=== PATIENT | male | born 1950 | race Caucasian/White ===

== ENCOUNTER 2020-04-19 23:40 | Inpatient (IN) | payer MEDICARE, OTHER ==
[~2020-04-19] VITALS: Ht 170.2 cm; Wt 93.4 kg
[2020-04-19] MEDS ORDERED: IPRATROPIUM BROM 0.5 MG/2.5ML INH SOL ONE (23:58)
[2020-04-19] MEDS ORDERED: ALBUTEROL SULF 2.5 MG/0.5ML(0.5%) NEB SOLN ONE (23:58)
[2020-04-20] MEDS ORDERED: ALBUTEROL SULF 2.5 MG/0.5ML(0.5%) NEB SOLN NEB ONE (00:15)
[2020-04-20] MEDS ORDERED: IPRATROPIUM BROM 0.5 MG/2.5ML INH SOL NEB ONE (00:15)
[2020-04-20] MEDS ORDERED: methylPREDNISolone SOD SUCC 125 MG/2 ML VL IV ONE (00:30)
[2020-04-20] MEDS ORDERED: levoFLOXacin 750MG 150 ML IV ONE (00:30)
[2020-04-20] MEDS ORDERED: SODIUM CHLORIDE 0.9% 1,000 ML IV ONE (00:30)
[2020-04-20 00:49] LABS: Basophils # (auto) 0.1 10 ^3/uL (0-0.2); Basophils % (auto) 0.6 % (0.0-2.0); Eosinophils # (auto) 0.2 10 ^3/uL (0-0.8); Eosinophils % (auto) 1.5 % (0.0-7.0); Hematocrit 46.3 % (41.0-53.0); Hemoglobin 15.4 g/dL (13.5-17.5); Lymphocytes # (auto) 0.9 10 ^3/uL (0.4-5.4); Lymphocytes % (auto) 6.5 % (10.0-50.0); Mean Corpuscular Hemoglobin 29.2 pg (28.0-32.0); Mean Corpuscular Hgb Conc. 33.2 g/dL (32.0-36.0); Monocytes # (auto) 0.9 10 ^3/uL (0-1.3); Neutrophils # (auto) 12.5 10 ^3/uL (1.6-8.6); Neutrophils % (auto) 85.4 % (37.0-80.0); Platelet Count (auto) 316 10^3/uL (140-450); Red Blood Cells 5.27 10^6/uL (4.5-5.90); Red Cell Distribution Width 14.8 % (11.8-14.3); White Blood Cell 14.6 10^3/uL (4.4-10.8)
[2020-04-20 01:32] LABS: INR 1.03 (0.9-1.15); Partial Thromboplastin Time 24.3 sec (23.0-31.2)
[2020-04-20 01:40] LABS: BUN/Creatinine Ratio 9.6; Calcium 8.3 mg/dL (8.5-10.1); Potassium 4.3 mmol/L (3.5-5.1)
[2020-04-20 01:48] LABS: Bilirubin, Total 0.5 mg/dL (0.2-1.0); Total Protein 8.8 g/dL (6.4-8.2)
[2020-04-20 02:17] LABS: CRP High Sensitivity 2.81 mg/dL (< 0.3)
[2020-04-20] MEDS ORDERED: ASPirin 325 MG TAB PO ONE (03:45)
[2020-04-20] MEDS ORDERED: METF-929 PO (05:05)
[2020-04-20] MEDS ORDERED: ASPI-543 PO (05:05)
[2020-04-20] MEDS ORDERED: INSU100I49 SC (05:05)
[2020-04-20] MEDS ORDERED: CARV25TA55 PO (05:05)
[2020-04-20] MEDS ORDERED: OMEP20TA PO (05:05)
[2020-04-20] MEDS ORDERED: LISI-646 PO (05:05)
[2020-04-20] MEDS: ALBUTEROL SULF 2.5 MG/0.5ML(0.5%) NEB SOLN NEB SCH ×3 (06:00→16:43)
[2020-04-20] MEDS ORDERED: methylPREDNISolone SOD SUCC 40 MG/ML VL IV SCH (06:00)
[2020-04-20] MEDS ORDERED: MORPHINE SULFATE 4 MG/ML SYR/VIAL IV PRN (06:00)
[2020-04-20] MEDS: IPRATROPIUM BROM 0.5 MG/2.5ML INH SOL NEB SCH ×3 (06:00→16:43)
[2020-04-20] MEDS ORDERED: MORPHINE SULF INJ 2 MG/ML SYRINGE 1ML IV PRN (06:00)
[2020-04-20] MEDS ORDERED: ONDANSETRON HCL 4 MG/2 ML VIAL IV PRN (06:00)
[2020-04-20] MEDS ORDERED: DOCUSATE SOD 100 MG CAP PO PRN (06:00)
[2020-04-20] MEDS ORDERED: NITROGLYCERIN 0.4 MG SL TAB SL PRN (06:00)
[2020-04-20 06:45] LABS: Basophils # (auto) 0 10 ^3/uL (0-0.2); Basophils % (auto) 0.6 % (0.0-2.0); Eosinophils # (auto) 0 10 ^3/uL (0-0.8); Hematocrit 39.4 % (41.0-53.0); Lymphocytes # (auto) 0.4 10 ^3/uL (0.4-5.4); Lymphocytes % (auto) 4.4 % (10.0-50.0); Mean Corpuscular Hemoglobin 28.9 pg (28.0-32.0); Mean Corpuscular Volume 87.7 fL (80.0-100.0); Monocytes # (auto) 0.2 10 ^3/uL (0-1.3); Monocytes % (auto) 1.9 % (0.0-12.0); Neutrophils # (auto) 7.9 10 ^3/uL (1.6-8.6); Neutrophils % (auto) 93.1 % (37.0-80.0); Nucleated Red Blood Cells % 0.1 %; Platelet Count (auto) 259 10^3/uL (140-450); Red Cell Distribution Width 14.9 % (11.8-14.3); White Blood Cell 8.5 10^3/uL (4.4-10.8)
[2020-04-20] MEDS ORDERED: FUROSEMIDE 40 MG/4 ML VIAL IV ONE (06:45)
[2020-04-20 07:07] LABS: Potassium 4.7 mmol/L (3.5-5.1)
[2020-04-20 07:29] LABS: Albumin 3.1 g/dL (3.4-5.0); BUN/Creatinine Ratio 13.1; Bilirubin, Total 0.5 mg/dL (0.2-1.0); Calcium 7.9 mg/dL (8.5-10.1); Total Protein 7.1 g/dL (6.4-8.2)
[2020-04-20 08:16] LABS: Urine Bacteria NONE SEEN /hpf (None Seen); Urine Blood TRACE /uL (Negative); Urine Specific Gravity 1.023 (1.001-1.035); Urine WBC 5 /hpf (0 - 3)
[2020-04-20] MEDS: cefTRIAXone 1GM/50ML D5W 50 ML IV SCH (09:29)
[2020-04-20] MEDS: ASPirin 81 mg TAB PO SCH (09:30)
[2020-04-20] MEDS ORDERED: PANTOPRAZOLE 40 MG/10 ML VIAL INJ IV SCH (10:00)
[2020-04-20] MEDS: NITROGLYCERIN 0.2MG/HR TOPICAL PATCH TD SCH (10:00)
[2020-04-20] MEDS ORDERED: ENALAPRIL MALEATE 2.5 MG TAB PO SCH (10:00)
[2020-04-20] MEDS: FUROSEMIDE 40 MG/4 ML VIAL IV SCH (11:17)
[2020-04-20] MEDS: HEPARIN SODIUM (PORCINE) 5000 UNITS/ML 1ML VIAL SC SCH ×2 (11:18→22:55)
[2020-04-20] MEDS ORDERED: DEXTROSE (50%) 50ML SYRG IV PRN ×2 (16:00→22:15)
[2020-04-20] MEDS: ACCU-CHEK COMFORT CURVE STRIP VI SCH ×3 (18:00→22:55)
[2020-04-20] MEDS ORDERED: INSUINJ18 SC ×2 (18:02)
[2020-04-20] MEDS ORDERED: ATOR10TA PO (18:02)
[2020-04-20] MEDS ORDERED: LISI40TA11 PO (18:02)
[2020-04-20] MEDS ORDERED: INSLANTI SC ×2 (18:02)
[2020-04-20] MEDS: InsuLIN REG 1unit/0.01ml Soln (100units/ml) SC SCH ×3 (18:25→22:55)
[2020-04-20 18:30] VITALS: BP 142/86
--- NOTE | 2020-04-20 19:40 | NUR ---
Opening Shift Note Assumed care of patient, awake and alert x4. Patient denies pain or shortness of breath at this time. Patient is on 4L/min Oxymizer. No sign/symptoms of distress noted or verbalized at this time. Instructed on plan of care and encouraged patient to call for assistance as needed, patient verbalized understanding. Bed is locked in lowest position, side rails x2 are up, and call light is within reach.
--- NOTE | 2020-04-20 21:30 | NUR ---
Paged Hospitalist RE: High Blood Sugar Hospitalist paged regarding critical blood sugar. Awaiting call back.
[2020-04-20 22:00] VITALS: BP 157/73
[2020-04-20] MEDS ORDERED: INSULIN LANTUS (GLARGINE) 1 /0.01ml (100units/ml) SC SCH (22:00)
--- NOTE | 2020-04-20 22:01 | NUR ---
Re-Paged Hospitalist RE: Critical Blood Sugar Hospitalist re-paged regarding critical blood sugar. Awaiting call back.
--- NOTE | 2020-04-20 22:04 | NUR ---
Hospitalist Returned Call RE: Critical Blood Sugar Hospitalist returned call regarding critical blood sugar 421. FOOD SAFETY AUDITOR Colleen made aware that initial blood sugar was 416 and after administrating Lantus 15 units and 10 units of regular insulin per mild sliding scale patient's most recent blood sugar is 421. Orders received, read back, and verified. Will carry out orders as received (see EMR).
[2020-04-20] MEDS ORDERED: ALBUTEROL SULF HFA 90MCG INH 200DOSE IN PRN (22:15)
[2020-04-20] MEDS: ACETAMINOPHEN 325 MG TAB PO PRN (23:10)
[2020-04-21] MEDS: InsuLIN REG 1unit/0.01ml Soln (100units/ml) SC SCH ×5 (04:06→20:40)
[2020-04-21] MEDS: ACCU-CHEK COMFORT CURVE STRIP VI SCH ×6 (04:06→23:51)
[2020-04-21 05:00] VITALS: BP 145/78
[2020-04-21] MEDS ORDERED: ALBUTEROL SULF HFA 90MCG INH 200DOSE IN PRN (05:45)
[2020-04-21 05:52] LABS: Basophils # (auto) 0 10 ^3/uL (0-0.2); Eosinophils # (auto) 0 10 ^3/uL (0-0.8); Hematocrit 37.3 % (41.0-53.0); Hemoglobin 12.3 g/dL (13.5-17.5); Lymphocytes # (auto) 0.7 10 ^3/uL (0.4-5.4); Lymphocytes % (auto) 8.5 % (10.0-50.0); Mean Corpuscular Hemoglobin 28.8 pg (28.0-32.0); Mean Corpuscular Hgb Conc. 32.8 g/dL (32.0-36.0); Mean Corpuscular Volume 87.6 fL (80.0-100.0); Monocytes # (auto) 1.1 10 ^3/uL (0-1.3); Monocytes % (auto) 14.8 % (0.0-12.0); Neutrophils # (auto) 5.9 10 ^3/uL (1.6-8.6); Neutrophils % (auto) 76.7 % (37.0-80.0); Platelet Count (auto) 256 10^3/uL (140-450); Red Blood Cells 4.26 10^6/uL (4.5-5.90); Red Cell Distribution Width 14.6 % (11.8-14.3); White Blood Cell 7.7 10^3/uL (4.4-10.8)
[2020-04-21] MEDS ORDERED: ALBUTEROL SULF HFA 90MCG INH 200DOSE IN SCH (06:00)
[2020-04-21 06:16] LABS: Albumin 3.2 g/dL (3.4-5.0); Calcium 8.1 mg/dL (8.5-10.1); Potassium 4.3 mmol/L (3.5-5.1)
[2020-04-21 06:22] LABS: BUN/Creatinine Ratio 19.6; Bilirubin, Total 0.3 mg/dL (0.2-1.0)
[2020-04-21] MEDS ORDERED: GLIP5TAB12 PO (07:39)
[2020-04-21] MEDS ORDERED: INSLANTI SC (07:39)
[2020-04-21] MEDS: NITROGLYCERIN 0.2MG/HR TOPICAL PATCH TD SCH (10:00)
[2020-04-21] MEDS ORDERED: ENOXAPARIN SOD 100 MG/1 ML SYRINGE SC ONE (10:45)
[2020-04-21] MEDS ORDERED: DexAMETHasone SOD PHOS 10MG/1ML VIAL INJ IV ONE (10:45)
[2020-04-21] MEDS ORDERED: AZITHROMYCIN 250 MG TAB PO ONE (10:45)
[2020-04-21] MEDS ORDERED: diphenhdrAMINE HCL 50 MG/1 ML VL IV PRN (10:45)
[2020-04-21] MEDS ORDERED: REMDESIVIR PER PHARMACY IV SCH (10:45)
[2020-04-21] MEDS ORDERED: FAMOTIDINE (10MG/ML) 2ML VL IV ONE (11:00)
[2020-04-21] MEDS: ASPirin 81 mg TAB PO SCH (11:10)
[2020-04-21] MEDS: cefTRIAXone 1GM/50ML D5W 50 ML IV SCH (11:10)
[2020-04-21 13:00] VITALS: BP 127/77
[2020-04-21] MEDS: FUROSEMIDE 40 MG/4 ML VIAL IV SCH (13:33)
[2020-04-21 17:00] VITALS: BP 131/68
[2020-04-21] MEDS ORDERED: REMDESIVIR 200 MG in NS 210ml LOADING DOSE ADULT IV ONE (17:00)
[2020-04-21 22:00] VITALS: BP 133/93
[2020-04-21] MEDS: FAMOTIDINE (10MG/ML) 2ML VL IV SCH ×2 (22:00→23:50)
--- NOTE | 2020-04-21 22:16 | NUR ---
1 Unit of Convalescent plasma started. Will continue to monitor patient.
[2020-04-21 22:24] LABS: Creatinine, Urine 24 mg/dL (30.0-125.0); Sodium Urine 121 mmol/L (40-220)
[2020-04-21 23:16] VITALS: BP 144/88
[2020-04-21] MEDS: ACETAMINOPHEN 325 MG TAB PO PRN (23:59)
[2020-04-22 00:28] VITALS: BP 145/91
--- NOTE | 2020-04-22 00:30 | NUR ---
Convalescent plasma completed. Patient tolerated well. Will continue to monitor.
[2020-04-22] MEDS: InsuLIN REG 1unit/0.01ml Soln (100units/ml) SC SCH ×6 (02:30→20:22)
[2020-04-22] MEDS: INSULIN LANTUS (GLARGINE) 1 /0.01ml (100units/ml) SC SCH ×3 (02:31→21:54)
[2020-04-22 05:00] VITALS: BP 162/93
[2020-04-22] MEDS: HYDROcodone-ACET 5/325MG TAB PO PRN ×3 (05:11→18:30)
[2020-04-22] MEDS: ACCU-CHEK COMFORT CURVE STRIP VI SCH ×5 (05:12→20:18)
[2020-04-22 06:55] LABS: Basophils # (auto) 0 10 ^3/uL (0-0.2); Basophils % (auto) 0.4 % (0.0-2.0); Eosinophils # (auto) 0 10 ^3/uL (0-0.8); Eosinophils % (auto) 0.2 % (0.0-7.0); Hematocrit 43.2 % (41.0-53.0); Hemoglobin 14.1 g/dL (13.5-17.5); Lymphocytes # (auto) 0.4 10 ^3/uL (0.4-5.4); Lymphocytes % (auto) 5.3 % (10.0-50.0); Mean Corpuscular Hemoglobin 28.6 pg (28.0-32.0); Mean Corpuscular Hgb Conc. 32.6 g/dL (32.0-36.0); Mean Corpuscular Volume 87.6 fL (80.0-100.0); Monocytes # (auto) 0.6 10 ^3/uL (0-1.3); Monocytes % (auto) 7.5 % (0.0-12.0); Neutrophils # (auto) 7.2 10 ^3/uL (1.6-8.6); Neutrophils % (auto) 86.6 % (37.0-80.0); Nucleated Red Blood Cells % 0.1 %; Platelet Count (auto) 251 10^3/uL (140-450); Red Blood Cells 4.93 10^6/uL (4.5-5.90); Red Cell Distribution Width 14.9 % (11.8-14.3); White Blood Cell 8.4 10^3/uL (4.4-10.8)
[2020-04-22 07:19] LABS: Potassium 3.7 mmol/L (3.5-5.1)
[2020-04-22 07:46] LABS: Albumin 3.6 g/dL (3.4-5.0); BUN/Creatinine Ratio 19.5; Bilirubin, Total 0.4 mg/dL (0.2-1.0); CRP High Sensitivity 1.5 mg/dL (< 0.3); Calcium 8.5 mg/dL (8.5-10.1); Magnesium 1.9 mg/dL (1.6-2.6); Total Protein 7.9 g/dL (6.4-8.2)
[2020-04-22 08:00] VITALS: BP 174/99
[2020-04-22] MEDS: AZITHROMYCIN 250 MG TAB PO SCH (08:25)
[2020-04-22] MEDS: SACUBITRIL-VALSARTAN 24mg/26mg TAB PO SCH (08:25)
[2020-04-22] MEDS: CLOPIDOGREL BISULFATE 75 MG TAB PO SCH (08:25)
[2020-04-22] MEDS: ASPirin 81 mg TAB PO SCH (08:26)
[2020-04-22] MEDS: NITROGLYCERIN 0.2MG/HR TOPICAL PATCH TD SCH (08:26)
[2020-04-22] MEDS: FAMOTIDINE (10MG/ML) 2ML VL IV SCH ×3 (08:26→21:40)
[2020-04-22] MEDS: FUROSEMIDE 40 MG/4 ML VIAL IV SCH (08:27)
[2020-04-22] MEDS: DexAMETHasone SOD PHOS 10MG/1ML VIAL INJ IV SCH (08:27)
--- NOTE | 2020-04-22 08:30 | NUR ---
REFUSED INSULIN PATIENT BLODD SUGAR 170; PATIENT REFUSED INSULIN PATIENT STATED " IM NOT GOING TO EAT BREAKFAST I WILL WAIT UNTIL LUNCH TO RECHECK MY BLOOD SUGAR" PATIENT EDUCATION PROVIDED. PATIENT HAS IMPLANTED BLOOD SUGAR MONITOR AND WILL ALSO MONITOR BLOOD SUGAR.
[2020-04-22] MEDS: cefTRIAXone 1GM/50ML D5W 50 ML IV SCH (08:44)
[2020-04-22] MEDS: ACETAMINOPHEN 325 MG TAB PO PRN (08:44)
[2020-04-22] MEDS ORDERED: ENOXAPARIN SOD 100 MG/1 ML SYRINGE SC SCH (10:00)
--- NOTE | 2020-04-22 10:00 | NUR ---
REASSESS BLOOD PRESSURE BP155/96 PULSE 94 DENIED PAIN, NO DISTRESS OR SOB; OXYGEN DELIVERED VIA OXYMIZER SET @ 4 LITERS O2 SATURATION 96%. WILL CONTIUE TO MONITOR.
--- NOTE | 2020-04-22 11:20 | NUR ---
Nutrition Assessment Notes please see attached link for complete assessment Est Energy needs ABW 81 [id number] kcals (23-25 kcal/kgABW), Est Protein needs: 64-81gms/day (0.8-1.0 gm/kgABW r/t elev RFT). Will continue to monitor and reassess prn. Addendum: 04/22/20 at [address] Amended: Links added.
--- NOTE | 2020-04-22 11:30 | NUR ---
TITRATED OXYGEN CHANGED FROM OXYMIZER 4.5L TO NASAL CANNULA AT 4 LITERS, SATURATION @ 94%. WILL CONTINUE TO MONITOR.
[2020-04-22 11:57] VITALS: BP 155/87
--- NOTE | 2020-04-22 12:00 | NUR ---
REASSESS O2 @ 96% ON 4 LITERS NASAL CANNULA; DENIED PAIN, NO SOB OR DISTRESS.
--- NOTE | 2020-04-22 16:45 | NUR ---
PAGED DR MATHUR FOR LOVENOX CLARIFICATION PER PHARMACY REQUEST.
[2020-04-22 17:01] VITALS: BP 112/80
[2020-04-22] MEDS: REMDESIVIR 100 MG in SODIUM CHL 0.9% 250 ML IV SCH (18:20)
--- NOTE | 2020-04-22 18:30 | NUR ---
PRE REMDESIVIR VITAL BP 112/80 HR 80 RR 22 TEMP 97.9 97% 3L NC WITH HUMIDIFIER.
--- NOTE | 2020-04-22 18:45 | NUR ---
15 MINUTE REMDESIVIR VITALS BP 144/92 HR 83 RR 16 T 98.7 O2 94 % 4L
--- NOTE | 2020-04-22 19:07 | NUR ---
ENDORSED CARE TO NIGHT GREY STOCK RECORDER RN WILL NEED TO ASSESS POST REMDESIVIR VITALS.
--- NOTE | 2020-04-22 19:20 | NUR ---
Opening note Assumed care of patient, patient is alert and orientated x4. No sob or distress noted Patient is still on Remdesivir. Will take last vitals. Bed is locked in lowest position, side rails up x2. POC reviewed. All questions answered at this time. Call light within reach, will continue to monitor q1hr and PRN.
--- NOTE | 2020-04-22 19:45 | NUR ---
Remdesivir complete Remdesivir complete. Flushed line with 40 ml. Vitals are as follows 137/83 HR 77, RR 18, 93% 98.0 temp. No pain. Patient tolerated well. Will continue to monitor q1hr and PRN.
[2020-04-22] MEDS: ENOXAPARIN SOD 100 MG/1 ML SYRINGE SC SCH (21:40)
[2020-04-22 22:00] VITALS: BP 142/72
[2020-04-23] MEDS: InsuLIN REG 1unit/0.01ml Soln (100units/ml) SC SCH ×7 (00:12→23:35)
[2020-04-23] MEDS: ACCU-CHEK COMFORT CURVE STRIP VI SCH ×7 (00:14→23:35)
[2020-04-23 05:00] VITALS: BP 131/85
--- NOTE | 2020-04-23 06:28 | NUR ---
Respiratory note: PT IS AWAKE, AND ALERT. NO RESPIRATORY DISTRESS NOTED. SPO2 95% ON 2.5L NC, HR 82, RR 18 BS CLEAR/DIMINISHED. PRN MDI TX NOT INDICATED AT THIS TIME. PT INFORMED TO PUSH CALL BUTTON IF INCREASED WOB, SOB, OR WHEEZING OCCURS. WILL CONTINUE TO MONITOR PT. CHARTING COMPLETE FROM OUTSIDE OF PT ROOM PER COVID-19 PRECAUTIONS/PROTOCOL.
[2020-04-23] MEDS: INSULIN LANTUS (GLARGINE) 1 /0.01ml (100units/ml) SC SCH ×2 (06:30→22:00)
[2020-04-23] MEDS: ACETAMINOPHEN 325 MG TAB PO PRN ×2 (06:33→17:27)
[2020-04-23 07:00] LABS: Potassium 3.8 mmol/L (3.5-5.1)
[2020-04-23 07:13] LABS: BUN/Creatinine Ratio 21.7; Calcium 8.2 mg/dL (8.5-10.1)
--- NOTE | 2020-04-23 07:17 | NUR ---
Closing note Endorsed care to day shift RN, no sob or distress noted.
[2020-04-23 09:13] VITALS: BP 153/84
[2020-04-23] MEDS: cefTRIAXone 1GM/50ML D5W 50 ML IV SCH (10:30)
[2020-04-23] MEDS: DexAMETHasone SOD PHOS 10MG/1ML VIAL INJ IV SCH (10:30)
--- NOTE | 2020-04-23 10:30 | NUR ---
Midline Placement: Patient educated on need for midline placement. All risks and benefits explained and all questions and concerns addresses prior to procedure. 18g/10 cm midline inserted via RIGHT BASILIC vein using Ultrasound. Sterile technique utilized. Blood return obtained from THE SINGLE lumen and flushed easily with NS using proper technique. Midline secured with saline lock; biodisc and occlusive dressing applied. Primary RN MARY notified. Midline lot # [id number]
[2020-04-23] MEDS: FUROSEMIDE 40 MG/4 ML VIAL IV SCH (10:31)
[2020-04-23] MEDS: ASPirin 81 mg TAB PO SCH (10:31)
[2020-04-23] MEDS: FAMOTIDINE (10MG/ML) 2ML VL IV SCH ×2 (10:31→22:00)
[2020-04-23] MEDS: CLOPIDOGREL BISULFATE 75 MG TAB PO SCH (10:32)
[2020-04-23] MEDS: SACUBITRIL-VALSARTAN 24mg/26mg TAB PO SCH (10:32)
[2020-04-23] MEDS: ENOXAPARIN SOD 100 MG/1 ML SYRINGE SC SCH ×2 (10:34→22:00)
[2020-04-23] MEDS: NITROGLYCERIN 0.2MG/HR TOPICAL PATCH TD SCH (10:35)
[2020-04-23] MEDS: AZITHROMYCIN 250 MG TAB PO SCH (10:36)
[2020-04-23] MEDS: HYDROcodone-ACET 5/325MG TAB PO PRN (12:30)
[2020-04-23 13:00] VITALS: BP 153/70
--- NOTE | 2020-04-23 14:30 | NUR ---
O2 TITRATED TO .5L SATURATION 96%, TOELRATED WELL.
[2020-04-23 17:22] VITALS: BP 139/88
[2020-04-23] MEDS: REMDESIVIR 100 MG in SODIUM CHL 0.9% 250 ML IV SCH (18:39)
--- NOTE | 2020-04-23 19:40 | NUR ---
Opening Shift Note Assumed care of patient, awake and alert x4. Patient denies pain or shortness of breath at this time. No sign/symptoms of distress noted or verbalized at this time. Instructed on plan of care and encouraged patient to call for assistance as needed, patient verbalized understanding. Bed is locked in lowest position, side rails x 2 are up, and call light is within reach.
--- NOTE | 2020-04-23 19:40 | NUR ---
ENDORSED CARE TO NIGHT RN PATIENT WILL NEED LAST SET OF VITALS AFTER REMDESIVIR IS GIVEN.
[2020-04-23 20:00] VITALS: BP 139/78
--- NOTE | 2020-04-23 20:00 | NUR ---
Remdesivir Vital Signs Remdesivir completed at this time. No sign/symptoms of distress noted or verbalized at this time. No adverse reactions reported at this time or during infusion. Post infusion vital signs are the following: BP: 139/78, HR: 77, RR: 18, SPO2: 92% on room air, TEMP: 98.1.
--- NOTE | 2020-04-23 22:00 | NUR ---
Hospitalist Paged RE: Critical Blood Sugar Hospitalist paged regarding critical blood sugar 474. Awaiting call back.
--- NOTE | 2020-04-23 22:34 | NUR ---
Spoke with Hospitalist RE: Critical Blood Sugar Notified KATI Montoya that patient's blood sugar was 474 and this RN has already medicated patient with 15 units of regular insulin per moderate sliding scale. KATI Montoya aware that patient is on every 4 hours accucheck on a moderate scale and has a scheduled 22:00 Lantus 25 units. No new orders received at this time.
--- NOTE | 2020-04-23 23:00 | NUR ---
Blood Sugar Reassessment Blood sugar at this time is 341.
[2020-04-24] VITALS (7 sets, daily range): BP systolic 133–160; BP diastolic 73–102
[2020-04-24] MEDS ORDERED: TEMAZEPAM 15 MG CAP PO ONE (00:45)
[2020-04-24] MEDS: InsuLIN REG 1unit/0.01ml Soln (100units/ml) SC SCH ×6 (04:00→23:20)
[2020-04-24] MEDS: ACCU-CHEK COMFORT CURVE STRIP VI SCH ×6 (04:00→23:20)
[2020-04-24 06:41] LABS: Hematocrit 46.3 % (41.0-53.0); Hemoglobin 15.8 g/dL (13.5-17.5); Mean Corpuscular Hemoglobin 29.4 pg (28.0-32.0); Mean Corpuscular Hgb Conc. 34.1 g/dL (32.0-36.0); Mean Corpuscular Volume 86.3 fL (80.0-100.0); Platelet Count (auto) 263 10^3/uL (140-450); Red Blood Cells 5.36 10^6/uL (4.5-5.90); Red Cell Distribution Width 14.9 % (11.8-14.3); White Blood Cell 5.8 10^3/uL (4.4-10.8)
[2020-04-24] MEDS: INSULIN LANTUS (GLARGINE) 1 /0.01ml (100units/ml) SC SCH ×2 (06:54→22:00)
[2020-04-24 07:06] LABS: Basophils % (manual) 0 (0.0-2.0); Blast Cells 0; Eosinophils % (manual) 0 (0-7); Metamyelocytes % 0; Myelocytes % 0; Promyelocytes % 0; Reactive Lymphocytes 0
[2020-04-24 07:07] LABS: BUN/Creatinine Ratio 23.4; Calcium 8.4 mg/dL (8.5-10.1); Potassium 3.6 mmol/L (3.5-5.1)
[2020-04-24 07:35] LABS: Band Neutrophils % (manual) 1; Lymphocytes % (manual) 14 (10.0-50.0); Monocytes % (manual) 24 (0-12)
[2020-04-24] MEDS: cefTRIAXone 1GM/50ML D5W 50 ML IV SCH (09:37)
[2020-04-24] MEDS: FUROSEMIDE 40 MG/4 ML VIAL IV SCH (09:40)
[2020-04-24] MEDS: FAMOTIDINE (10MG/ML) 2ML VL IV SCH ×2 (09:40→21:30)
[2020-04-24] MEDS: DexAMETHasone SOD PHOS 10MG/1ML VIAL INJ IV SCH (09:40)
[2020-04-24] MEDS: CLOPIDOGREL BISULFATE 75 MG TAB PO SCH (09:41)
[2020-04-24] MEDS: ENOXAPARIN SOD 100 MG/1 ML SYRINGE SC SCH ×2 (09:41→21:30)
[2020-04-24] MEDS: AZITHROMYCIN 250 MG TAB PO SCH (09:41)
[2020-04-24] MEDS: NITROGLYCERIN 0.2MG/HR TOPICAL PATCH TD SCH (09:41)
[2020-04-24] MEDS: ASPirin 81 mg TAB PO SCH (09:42)
[2020-04-24] MEDS: SACUBITRIL-VALSARTAN 24mg/26mg TAB PO SCH ×2 (09:43→21:31)
[2020-04-24] MEDS: ACETAMINOPHEN 325 MG TAB PO PRN ×2 (10:45→20:23)
--- NOTE | 2020-04-24 12:55 | NUR ---
at bedside MD Mccracken at bedside. No new orders received. Will inform primary RN Fede.
--- NOTE | 2020-04-24 17:10 | NUR ---
STARTING VITALS BP 131/101 PULSE 78 O2 SATURATION 94% ON ROOM AIR NO DISTRESS OR SOB
--- NOTE | 2020-04-24 17:25 | NUR ---
15 MINUTE VITALS BP 135/78 P 82 O2 SATURATION ON ROOM AIR 93%
--- NOTE | 2020-04-24 17:30 | NUR ---
PAGED DR MATHUR TO RESUME PATIENTS HOME MEDICATIONS AND START A SLEEP AIDE THIS NIGHT.
--- NOTE | 2020-04-24 18:10 | NUR ---
HOSPITALIST PAGED PATIENT LAST BP AFTER REMDESIVIR HIGH 179/80 PULSE 92 O2 SATURATION 93% ROOM AIRE.
--- NOTE | 2020-04-24 18:47 | NUR ---
REPAGED HOSPITALIST FOR NEW ORDERS FOR HIGH BP AND SLEEP AIDE .
--- NOTE | 2020-04-24 19:09 | NUR ---
endorsed care to night rn. this rn received new orders for elevated bp and will give bp medication as ordered.
[2020-04-24] MEDS ORDERED: TEMAZEPAM 15 MG CAP PO PRN (19:15)
[2020-04-24] MEDS: hydrALAZINE HCL 20 MG/ML VL IV PRN (19:29)
[2020-04-25] MEDS: InsuLIN REG 1unit/0.01ml Soln (100units/ml) SC SCH ×4 (04:00→17:02)
[2020-04-25] MEDS: ACCU-CHEK COMFORT CURVE STRIP VI SCH ×4 (04:00→16:52)
[2020-04-25 05:00] VITALS: BP 150/78
[2020-04-25] MEDS: INSULIN LANTUS (GLARGINE) 1 /0.01ml (100units/ml) SC SCH (06:48)
[2020-04-25] MEDS: cefTRIAXone 1GM/50ML D5W 50 ML IV SCH (08:08)
[2020-04-25 08:27] LABS: Potassium 3.5 mmol/L (3.5-5.1)
[2020-04-25 08:31] LABS: BUN/Creatinine Ratio 24.9; Calcium 8.5 mg/dL (8.5-10.1)
[2020-04-25 09:00] VITALS: BP 154/82
[2020-04-25] MEDS: NITROGLYCERIN 0.2MG/HR TOPICAL PATCH TD SCH (10:00)
[2020-04-25] MEDS: FAMOTIDINE (10MG/ML) 2ML VL IV SCH (10:59)
[2020-04-25] MEDS: ASPirin 81 mg TAB PO SCH (10:59)
[2020-04-25] MEDS: DexAMETHasone SOD PHOS 10MG/1ML VIAL INJ IV SCH (10:59)
[2020-04-25] MEDS: FUROSEMIDE 40 MG/4 ML VIAL IV SCH (10:59)
[2020-04-25] MEDS: CLOPIDOGREL BISULFATE 75 MG TAB PO SCH (11:00)
[2020-04-25] MEDS: ENOXAPARIN SOD 100 MG/1 ML SYRINGE SC SCH (11:00)
[2020-04-25] MEDS: AZITHROMYCIN 250 MG TAB PO SCH (11:00)
[2020-04-25] MEDS: SACUBITRIL-VALSARTAN 24mg/26mg TAB PO SCH (11:00)
[2020-04-25] MEDS: hydrALAZINE HCL 20 MG/ML VL IV PRN (11:03)
[2020-04-25] MEDS: ACETAMINOPHEN 325 MG TAB PO PRN (11:04)
--- NOTE | 2020-04-25 12:00 | NUR ---
PATIENT AMBULATING AROUND UNIT ON ROOM AIR.
[2020-04-25] MEDS ORDERED: SACU1TAB PO (12:15)
[2020-04-25] MEDS ORDERED: CLOP75TA28 PO (12:15)
[2020-04-25] MEDS ORDERED: ALBUAER3 IN (12:15)
[2020-04-25 13:00] VITALS: BP 131/80
--- NOTE | 2020-04-25 14:07 | NUR ---
PATIENT TO BE DISCHARGED AFTER LAST REMDESIVIR 1700.
[2020-04-25] MEDS: REMDESIVIR 100 MG in SODIUM CHL 0.9% 250 ML IV SCH (16:39)
[2020-04-25 17:00] VITALS: BP 146/92
[2020-04-25 17:11] VITALS: BP 154/82
--- NOTE | 2020-04-25 17:17 | NUR ---
DC MEDS: PATIENT ENTRESTO PRESCRIPTION FREE AFTER COUPON, HOWEVER CO-PAY FOR ALBUTEROL AND OTHER MEDICATION AROUND 50$. PATIENT REFUSED TO PAY [facility] AND HE WILL CALL THEM HIMSELF TOMORROW. PATIENT ENTRESTO DELIVERED TO BEDSIDE.
--- NOTE | 2020-04-25 17:51 | NUR ---
PATIENT DISCHARGED: ALL EDUCATION MATERIALS GIVEN VERBALIZED UNDERSTANDING. PATIENT ACTUALLY ENDED UP ASKING THIS RN TO USE DEBIT CARD TO BUY OTHER MEDICATIONS FROM [facility]. IV MIDLINE REMOVED CATHETER INTACT. TELE RETURNED TO CARDIO UNIT. PATIENT LEFT WITH ALL BELONGINGS.
== END 2020-04-25 17:50 | disposition home or self-care (01) | DRG 177 ==
LOC: EDBD 23:40 → ER 23:40 → TELE 23:41 → TELE-EAST 04-20 17:25
PROVIDERS: ADMIT Nurse Practitioner Family; ATTEND Internal Medicine
PROC: 5A09357 Assistance with Respiratory Ventilation, Less than 24 Consecutive Hours, Continuous Positive Airway Pressure (ICD-10-PCS; 2020-04-20)
PROC: XW13325 Transfusion of Convalescent Plasma (Nonautologous) into Peripheral Vein, Percutaneous Approach, New Technology Group 5 (ICD-10-PCS; principal; 2020-04-21)
PROC: XW033E5 Introduction of Remdesivir Anti-infective into Peripheral Vein, Percutaneous Approach, New Technology Group 5 (ICD-10-PCS; 2020-04-21)
DX: U07.1 COVID-19 (principal); J12.89 Other viral pneumonia; J96.01 Acute respiratory failure with hypoxia; I50.43 Acute on chronic combined systolic (congestive) and diastolic (congestive) heart failure; I21.4 Non-ST elevation (NSTEMI) myocardial infarction; N17.9 Acute kidney failure, unspecified; I13.0 Hypertensive heart and chronic kidney disease with heart failure and stage 1 through stage 4 chronic kidney disease, or unspecified chronic kidney disease; N18.30 Chronic kidney disease, stage 3 unspecified; D64.9 Anemia, unspecified; E11.65 Type 2 diabetes mellitus with hyperglycemia; I25.2 Old myocardial infarction; E11.22 Type 2 diabetes mellitus with diabetic chronic kidney disease; I25.10 Atherosclerotic heart disease of native coronary artery without angina pectoris; Z68.32 Body mass index [BMI] 32.0-32.9, adult; Z79.02 Long term (current) use of antithrombotics/antiplatelets; Z79.82 Long term (current) use of aspirin; Z79.899 Other long term (current) drug therapy; Z95.5 Presence of coronary angioplasty implant and graft
CPT/HCPCS: 36415; 36600; 71045; 80048; 80053; 80061; 81001; 82043; 82306; 82570; 82728; 82805; 82962; 83036; 83615; 83735; 83880; 84300; 84443; 84484; 85007; 85025; 85027; 85379; 85610; 85730; 86141; 86850; 86900; 86901; 87426; 87804; 93005; 93306; 94640; 96365; 96367; 96372; 96375; 96376; C9113; G0378; J0696; J1100; J1815; J1956; J2405; J3490